=== PATIENT | female | born 1990 ===

== ENCOUNTER 2019-03-20 14:06 | Outpatient (REF) | payer MEDICAID, SELFPAY ==
[2019-03-20 22:37] LABS: TSH 1.45 uIU/mL (0.358-3.74)
== END 2019-03-20 14:26 ==
LOC: NCHCN 14:06
PROVIDERS: PCP Registered Nurse; Visit Provider Registered Nurse
DX: F45.8 Other somatoform disorders (principal); R68.89 Other general symptoms and signs
CPT/HCPCS: 84443